=== PATIENT | male | born 1960 | race Caucasian/White ===

== ENCOUNTER 2017-11-09 10:34 | Day surgery (SDC) | payer BC, OTHER ==
[~2017-11-09 10:34] MED LIST: Lactated Ringers 1,000 ML IV SCH; cefOXitin 2 GM in Premix Bag 1 BAG IV ONE
--- NOTE | 2017-11-09 11:41 | PCM.PREANE ---
Preanesthetic Assessment - Anesthesia/Transfusion/Family Hx Anesthesia History: Prior Anesthesia Without Reaction Other Type of Anesthesia Reaction Comment: "takes me awhile to wake up" Family History of Anesthesia Reaction: No Transfusion History: No Prior Transfusion(s) Intubation History: Unknown - Review of Systems General: No Symptoms Pulmonary: No Symptoms Cardiovascular: No Symptoms Gastrointestinal: No Symptoms Neurological: Gait Disturbance Other: Reports: None - Physical Assessment O2 Sat by Pulse Oximetry: 97 Respiratory Rate: 16 Vital Signs: Last Vital Signs Temp 36.2 C 11/09/17 10:53 Pulse 66 11/09/17 10:53 Resp 16 11/09/17 10:53 BP 124/76 11/09/17 10:53 Pulse Ox 97 11/09/17 10:53 Height: 1.75 m Weight: 83.461 kg ASA Class: 3 Mental Status: Alert & Oriented x3 Airway Class: Mallampati = 2 Dentition: Reports: Normal Dentition Thyro-Mental Finger Breadths: 3 Mouth Opening Finger Breadths: 3 ROM/Head Extension: Full Lungs: Clear to Auscultation, Normal Respiratory Effort Cardiovascular: Regular Rate, Regular Rhythm - Allergies Allergies/Adverse Reactions: Allergies Allergy/AdvReac Type Severity Reaction Status Date / Time Penicillins Allergy Rash Verified 09/15/14 11:46 - Blood Blood Available: No - Anesthesia Plan Pre-Op Medication Ordered: None Beta Carrington: Metoprolol Med Last Dose Date: 11/09/17 Med Last Dose Time: 07:00 - Acknowledgements Anesthesia Type Planned: MAC Pt an Appropriate Candidate for the Planned Anesthesia: Yes Alternatives and Risks of Anesthesia Discussed w Pt/Guardian: Yes Pt/Guardian Understands and Agrees with Anesthesia Plan: Yes PreAnesthesia Questionnaire HEENT History: Reports: Other (See Below) Other HEENT History: wears glasses Cardiovascular History: Reports: Hypertension Gastrointestinal History: Reports: Colon Polyp, Other (See Below) Other Gastrointestinal History: heartburn in the past Genitourinary History: Reports: BPH Musculoskeletal History: Reports: Other (See Below) Other Musculoskeletal History: limited mobility to rt lower extremity, uses cane Neurological History: Reports: Other (See Below) (increased intracranial pressure, gate problems- walks with patel) - Past Surgical History Head Surgeries/Procedures: Reports: None HEENT Surgical History: Reports: Naso-Sinus Surgery GI Surgical History: Reports: Colonoscopy (3 years ago (polyps)) Male Surgical History: Reports: Vasectomy Neurological Surgical History: Reports: Other (See Below) Other Neurological Surgeries/Procedures: 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 in - SUBSTANCE USE Smoking Status *Q: Never Smoker Days Per Week of Alcohol Use: 7 Number of Drinks Per Day: 1 Total Drinks Per Week: 7 Recreational Drug Use History: No - HOME MEDS Home Medications: Home Meds Ascorbic Acid [Vitamin C] 100 mg PO DAILY 09/15/14 [History] Fish Oil/[place]-3 Fatty Acids [Fish Oil 1,000 MG] 1,000 mg PO DAILY 09/15/14 [ History] amLODIPine [Norvasc] 5 mg PO DAILY 09/15/14 [History] M-17/[place] [Prostate Therapy Softgel] 1 tab PO DAILY 11/05/17 [History] Metoprolol Succinate 25 mg PO DAILY 11/05/17 [History] - CURRENT (IN HOUSE) MEDS Current Meds: Current Medications Lactated Ringer's (Ringers, Lactated) 1,000 mls @ 125 mls/hr IV ASDIRECTED [facility] Last Admin: 11/09/17 10:59 Dose: 125 mls/hr Discontinued Medications Cefoxitin Sodium 2 gm/ Premix 50 mls @ 100 mls/hr IV ONETIME ONE Stop: 11/09/17 08:29
[2017-11-09] MEDS ORDERED: Lidocaine 2% 5 ML SDV ONE (11:54)
[2017-11-09] MEDS ORDERED: fentaNYL 100 MCG/2 ML SDV ONE (11:55)
[2017-11-09] MEDS ORDERED: Propofol 200 MG/20 ML SDV ONE (11:55)
[2017-11-09] MEDS ORDERED: Ondansetron 4 MG/2 ML SDV ONE (12:16)
[2017-11-09] MEDS ORDERED: Midazolam 1 MG/ML 2 ML SDV ONE (12:16)
[2017-11-09] MEDS ORDERED: Glycopyrrolate 0.2 MG/ML SDV ONE (12:16)
--- NOTE | 2017-11-09 12:53 | PCM.OPNOTE ---
- General Post-Op/Procedure Note Date of Surgery/Procedure: 11/09/17 Operative Procedure(s): Colonoscopy with multiple cold polypectomies from the hepatic flexure, transverse colon and splenic flexure. Pre Op Diagnosis: Personal history of colon polyps Post-Op Diagnosis: Hepatic flexure polyps. Transverse colon polyp. Splenic flexure polyp. Anesthesia Technique: MAC (ASA II) Primary Surgeon: Duy Good Condition: Good Free Text/Narrative:: Dictation [id number] CPT CODE [id number]
[2017-11-09] MEDS ORDERED: Lactated Ringers 1,000 ML IV SCH (13:00)
--- NOTE | 2017-11-09 13:36 | OR ---
SURGEON: Duy Good M.D. DATE OF PROCEDURE: 11/09/2017 OPERATION PERFORMED: Colonoscopy with cold hepatic flexure, transverse colon, and splenic flexure polypectomy. ANESTHESIA: MAC. ASA CLASSIFICATION: II. PREOPERATIVE DIAGNOSIS: Personal history of colon polyps. POSTOPERATIVE DIAGNOSES: 1. Hepatic flexure polyps. 2. Transverse colon polyp. 3. Splenic flexure polyp. DESCRIPTION OF PROCEDURE: The patient was taken to the endoscopy room, positioned on the endoscopy table on the left lateral decubitus position. Time-out was called for appropriate identification of the patient and procedure. Monitored anesthesia care was provided. The colonoscope was inserted into the rectum and advanced with minimal difficulty to the cecum where the colonoscope was retroflexed to visualize the ascending colon from below. The colonoscope was then straightened and slowly withdrawn. No polyps were seen in the cecum or ascending colon. Several polyps were seen in the hepatic flexure and removed with the cold biopsy forceps. A 4th polyp was encountered in the transverse colon and removed again with cold biopsy forceps. This was sent as a separate specimen. A 5th polyp was encountered at the splenic flexure and also removed and sent separately. The descending colon, sigmoid colon, and rectum showed no other tumors, polyps, diverticula, or angiodysplastic changes. The colonoscope was withdrawn to the rectum and retroflexed to visualize the anal orifice from above. No tumors, polyps, or acute hemorrhoidal changes were noted. The colonoscope was then straightened, the rectum aspirated, and the colonoscope removed. The patient tolerated the procedure well and was taken to recovery room in stable condition. DENISE / PABLO /[id number]
[2017-11-09 14:25] VITALS: BP 126/78
== END 2017-11-09 13:25 | disposition home or self-care (01) ==
LOC: MW.SDS 10:34
PROVIDERS: ATTEND Surgery
DX: D12.2 Benign neoplasm of ascending colon (principal); D12.3 Benign neoplasm of transverse colon; Z86.010 Personal history of colon polyps; I10 Essential (primary) hypertension; N42.9 Disorder of prostate, unspecified; Z88.0 Allergy status to penicillin; Z79.899 Other long term (current) drug therapy; Z98.52 Vasectomy status; Z98.890 Other specified postprocedural states
CPT/HCPCS: 45380; J2250; J2405; J3010; J7120; 00810; 88305; J2704